=== PATIENT | male | born 1995 | race Two or more races ===

== ENCOUNTER 2023-08-31 11:57 | Emergency (ER) | payer MEDICAID ==
[~2023-08-31] VITALS: Ht 170.2 cm; Wt 68.0 kg
[2023-08-31 12:25] VITALS: BP 118/81; TEMP 98.2; O2SAT 97
[2023-08-31] MEDS ORDERED: IBUP-1953 PO (14:25)
== END 2023-08-31 15:37 | disposition home or self-care (01) ==
LOC: ER 12:06
DX: S92.255A Nondisplaced fracture of navicular [scaphoid] of left foot, initial encounter for closed fracture (principal); X50.1XXA Overexertion from prolonged static or awkward postures, initial encounter; Y93.89 Activity, other specified; Y92.89 Other specified places as the place of occurrence of the external cause; Y99.8 Other external cause status
CPT/HCPCS: 73610-TC; 73630-TC